=== PATIENT | female | born 1985 | race Caucasian/White ===

== ENCOUNTER 2024-06-16 12:03 | Emergency (ER) | payer MEDICAID, SELFPAY ==
[2024-06-16 12:04] VITALS: BMI 40.6
--- NOTE | 2024-06-16 12:29 | XR_ITS ---
Examination: CT brain head without contrast. 2-D sagittal coronal reconstructions Date and time of exam:June 16, 2024 1236 hrs. Indications: Dizziness, ataxia, headache beginning yesterday CTDI: vol (mGy):53.8 DLP: (mGycm):1053 Technique: Multiple CT axial sections of the brain have been obtained, 5 mm slice thickness. Contrast has not been administered. 2-D sagittal, coronal reconstructions have been obtained Low dose protocols were performed. One or more of the following dose reduction techniques were used; automated exposure control, adjustment of the mA and/or KV according to patient size, use of iterative reconstruction technique. Findings: No significant ventricular enlargement. Intra-axial or extra-axial hemorrhage density is not seen. No mass effect or midline shift Basal cisterns are not remarkable. Fourth ventricle is midline. Cranial vault intact. Acute maxillary sinusitis Impression: Negative for acute hemorrhage, mass effect or midline shift If symptoms persist, consider brain MRI follow-up, stroke protocol
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
--- NOTE | 2024-06-16 12:29 | XR_ITS ---
Examination: CT cervical spine without contrast 2-D sagittal reconstructions 2-D coronal reconstructions 3-D reconstructions. Exam date and time:June 16, 2024 1236 hrs. Indications: Onset neck soreness beginning yesterday CTDI:vol (mGy) 10.5 DLP: (mGycm) 211 Technique: Multiple 2 mm axial sections of the cervical spine have been obtained. The coronal and sagittal reconstructions have been obtained. 3-D reconstructions have been obtained. Low dose protocols were performed. One or more of the following dose reduction techniques were used; automated exposure control, adjustment of the mA and/or KV according to patient size, use of iterative reconstruction technique. Findings: Axial sections demonstrate intact base of the skull. C1 exhibit satisfactory relationship to the odontoid. No acute cervical vertebral body fracture seen. Alignment posterior spinous processes satisfactory. Impression: No acute cervical fracture. His symptoms persist, consider MRI cervical spine without contrast follow-up
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
[2024-06-16 12:30] VITALS: BP 136/83; PULSE 90; RESP 17; TEMP 37; O2SAT 96
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
== END 2024-06-16 14:39 | disposition home or self-care (01) ==
PROVIDERS: Emergency Provider Emergency Medicine; PCP Family Medicine
DX: S13.4XXA Sprain of ligaments of cervical spine, initial encounter (principal); S46.911A Strain of unspecified muscle, fascia and tendon at shoulder and upper arm level, right arm, initial encounter; S09.90XA Unspecified injury of head, initial encounter; S79.912A Unspecified injury of left hip, initial encounter; S29.9XXA Unspecified injury of thorax, initial encounter; V89.2XXA Person injured in unspecified motor-vehicle accident, traffic, initial encounter
CPT/HCPCS: 70450; 71046; 72125; 73030; 73502; 99284

== ENCOUNTER 2024-08-09 04:35 | Emergency (ER) | payer MEDICAID, SELFPAY ==
[2024-08-09 04:40] VITALS: BP 178/132; PULSE 87; RESP 19; TEMP 36.8; O2SAT 100; BMI 42.0
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
--- NOTE | 2024-08-09 05:19 | XR_ITS ---
Examination: CT abdomen and pelvis without contrast. Coronal 3-D reconstructions. Sagittal 2-D reconstructions. Date and time of exam:August 09, 2024 at 0732 hours Comparison January 04, 2022 INDICATION: Nausea vomiting beginning yesterday CTDI: vol (mGy): 16.5 DLP: (mGycm): 968 Technique: Axial images of the abdomen have been obtained, 3 mm slice thickness Intravenous contrast material has not been administered. Low dose protocols were performed. One or more of the following dose reduction techniques were used; automated exposure control, adjustment of the mA and/or KV according to patient size, use of iterative reconstruction technique. Findings: Hepatomegaly 20 cm fatty liver Splenomegaly AP dimension 14 cm No gallstones No pancreatic or adrenal mass Mild bilateral renal parenchymal scar formation No renal or ureteral calculi, no hydronephrosis Aorta normal size 4 mm fat-containing umbilical hernia Normal appendix No bowel obstruction No diverticulitis Anteverted uterus Intact urinary bladder Intact osseous structures IMPRESSION: Hepatosplenomegaly. Fatty liver. Mild bilateral renal parenchymal scar formation Normal appendix No bowel obstruction or diverticulitis
[2024-08-09] MEDS: SODIUM CHLORIDE 0.9% 1000 ML 1,000 ML 999 ML IV (05:28)
[2024-08-09] MEDS: ONDANSETRON INJ 2 MG/ML INJ 2 ML 4 MG IV (05:29)
[2024-08-09] MEDS: MORPHINE SULF INJ 10 MG/ML VIAL 4 MG IVP (05:29)
[2024-08-09] MEDS: KETOROLAC INJ 30 MG/ML VIAL IVP (05:35)
[2024-08-09 05:45] LABS: Basophils # (Auto) 0.1 Thou/mm3 (0.0-0.2); Basophils % (Auto) 0 % (0-2.5); Eosinophils # (Auto) 0.1 Thou/mm3 (0.0-0.5); Eosinophils % (Auto) 1 % (0-10); Hematocrit 40.1 % (36.0-46.0); Hemoglobin 13.5 g/dL (12.0-16.0); Immature Granulocytes % (Auto) 0 % (0-0); Immature Granulocytes Auto 0.04 Thou/mm3 (0.00-0.00); Lymphocytes # (Auto) 1.8 Thou/mm3 (1.0-4.8); Lymphocytes % (Auto) 16 % (10-50); Mean Corpuscular HGB Conc 33.7 g/dl (31.0-37.0); Mean Corpuscular Hemoglobin 25.6 pg (25.0-35.0); Mean Corpuscular Volume 76 fL (80-100); Monocytes # (Auto) 0.6 Thou/mm3 (0.0-0.8); Monocytes % (Auto) 5 % (0-12); Neutrophils # (Auto) 8.8 Thou/mm3 (1.8-7.7); Neutrophils % (Auto) 77 % (37-80); Nucleated Red Blood Cell % 0 /100 WBC (0); Platelet Count 336 Thou/mm3 (140-440); RDW Standard Deviation 37.7 fL (36.4-46.3); Red Blood Count 5.27 Miln/mm3 (4.00-5.20); White Blood Count 11.5 Thou/mm3 (3.6-11.0)
--- NOTE | 2024-08-09 05:58 | PD.EDADDENDU ---
Emergency Room Addendum Addendum Narrative: 0600: Care assumed from Dr. Moon, the previous shift emergency physician. Past medical, surgical, social and family history reviewed. Vitals and home medications reviewed. I will assume the care of the patient at this time. Please refer to the emergency department record for history and examination from initial visit.? Physical exam by me shows patient under no acute distress at this time. 0922: Patient remains clinically stable throughout the emergency department visit. Re-assessment at the time of disposition demonstrates that the patient is in no acute distress. We reviewed all the results, analysis, and treatment plans. Patient is amenable to discharge. Strict return precautions were outlined. Patient was discharged in stable condition. Diagnoses: Abdominal pain RADIOLOGY Procedure(s): CT abdomen pelvis wo [facility] Accession Number(s): [id number] cc: Erasto Moon MD; Boy Corbin MD; NO PRIMARY/FAMILY,PHYSICIAN~ Examination: CT abdomen and pelvis without contrast. Coronal 3-D reconstructions. Sagittal 2-D reconstructions. Date and time of exam:August 09, 2024 at 0732 hours Comparison January 04, 2022 INDICATION: Nausea vomiting beginning yesterday CTDI: vol (mGy): 16.5 DLP: (mGycm): 968 Technique: Axial images of the abdomen have been obtained, 3 mm slice thickness Intravenous contrast material has not been administered. Low dose protocols were performed. One or more of the following dose reduction techniques were used; automated exposure control, adjustment of the mA and/or KV according to patient size, use of iterative reconstruction technique. Findings: Hepatomegaly 20 cm fatty liver Splenomegaly AP dimension 14 cm No gallstones No pancreatic or adrenal mass Mild bilateral renal parenchymal scar formation No renal or ureteral calculi, no hydronephrosis Aorta normal size 4 mm fat-containing umbilical hernia Normal appendix No bowel obstruction No diverticulitis Anteverted uterus Intact urinary bladder Intact osseous structures IMPRESSION: Hepatosplenomegaly. Fatty liver. Mild bilateral renal parenchymal scar formation Normal appendix No bowel obstruction or diverticulitis Dictated By: Boy Corbin MD
[2024-08-09 06:07] VITALS: BP 163/102; PULSE 82; RESP 19; TEMP 36.8; O2SAT 100
[2024-08-09 06:11] LABS: HCG,Qualitative Serum Negative
[2024-08-09 06:22] LABS: Alanine Aminotransferase 31 U/L (10-49); Albumin, Serum 5.1 gm/dL (3.5-5.0); Albumin/Globulin Ratio 1.5 (1.2-2.2); Alkaline Phosphatase 69 U/L (46-116); Amylase 51 U/L (30-118); Anion Gap 15 (7-16); Aspartate Amino Transferase 28 U/L (0-34); BUN/Creatinine Ratio 10 Ratio (12-20); Bilirubin,Total 0.6 mg/dL (0.3-1.2); Blood Urea Nitrogen 9 mg/dL (9-23); Calcium 9.9 mg/dL (8.3-10.6); Calcium (Corrected) 9.9 mg/dL (8.5-10.1); Carbon Dioxide 20.5 mMol/L (20.0-31.0); Chloride 101 mMol/L (98-107); Creatinine (Component) 0.9 mg/dL (0.6-1.3); Globulin 3.3 gm/dL (2.3-3.5); Glucose 205 mg/dL (74-106); Lipase 43 U/L (12-53); Magnesium 2.1 mg/dL (1.6-2.6); Osmolality,Calculated 276 (275-295); Potassium 3.6 mMol/L (3.4-5.1); Sodium 136 mMol/L (136-145); Total Protein 8.4 gm/dL (5.7-8.2); eGFR > 60 See Note
[2024-08-09] MEDS: HALOPERIDOL LACT INJ 5 MG/ML VIAL 10 MG IM (07:00)
--- NOTE | 2024-08-09 07:00 | PC.NURSE ---
REPORT RECEIVED FROM JAEL NOVOA. PATIENT WITH COMPLAINT OF EPIGASTRIC PAIN. PATIENT OFFERED BLANKET AND PLAN OF CARE EXPLAINED. MOTHER AT BEDSIDE AND UNDERSTANDS NEED FOR CT. PATIENT NOT ABLE TO TOLERATE BP CUFF AT THIS TIME. CALL LIGHT WITHIN REACH. WILL CONTINUE TO MONITOR. DIE ASSEMBLER CONTACTED.
--- NOTE | 2024-08-09 07:30 | PC.NURSE ---
PATIENT TAKEN TO CT VIA GURNEY. PATIENT ABLE TO TOLERATE PAIN STATES IT IS A 3/10. GOWN AND BLANKET GIVEN.
[2024-08-09 07:59] VITALS: BP 178/128; PULSE 74; RESP 16; TEMP 36.4; O2SAT 98
[2024-08-09 09:32] VITALS: BP 160/92; PULSE 88; RESP 16; O2SAT 96
== END 2024-08-09 09:34 | disposition home or self-care (01) ==
PROVIDERS: Emergency Medicine; Emergency Provider Emergency Medicine
DX: K76.0 Fatty (change of) liver, not elsewhere classified (principal); R16.2 Hepatomegaly with splenomegaly, not elsewhere classified; N28.89 Other specified disorders of kidney and ureter
CPT/HCPCS: 36415; 74176; 80053; 82150; 83690; 83735; 84703; 85025; 96361; 96372; 96374; 96375; 99284; J1630; J1885; J2270; J2405; J7030

== ENCOUNTER 2024-08-12 22:01 | Emergency (ER) | payer MEDICAID, SELFPAY ==
[2024-08-12 22:09] VITALS: BP 167/93; PULSE 107; RESP 23; TEMP 36.9; O2SAT 98
[2024-08-12 22:10] VITALS: BMI 42.0
--- NOTE | 2024-08-12 22:23 | PD.EDRME ---
Rapid Medical Screening Exam RME Arrival date/time: 08/12/24 22:01 Chief Complaint: Abdominal Pain Time Seen by Provider: 08/12/24 22:08 Vital signs: Vital Signs Temperature 98.4 F 08/12/24 22:09 Pulse Rate 107 H 08/12/24 22:09 Respiratory Rate 23 H 08/12/24 22:09 Blood Pressure 167/93 H 08/12/24 22:09 Pulse Oximetry (%) 98 08/12/24 22:09 Oxygen Delivery Method Room Air 08/12/24 22:09 Vital signs reviewed by provider: Yes RME Narrative: 39-year-old female presents with abdominal pain x 3 days. She describes it as epigastric burning. She endorses nausea, vomiting, diarrhea. Patient was seen in the ED x 1 day ago.
--- NOTE | 2024-08-12 22:40 | EDNOTE_ITS ---
ED Abdominal Pain RME/HPI General Chief Complaint: Abdominal Pain Stated complaint: ABD PAIN Time seen by provider: 08/12/24 22:08 Arrival date/time: 08/12/24 22:01 RME / HPI RME / HPI narrative: 39-year-old female presents with abdominal pain x 3 days. She describes it as epigastric burning. She endorses nausea, vomiting, diarrhea. Patient was seen in the ED x 1 day ago. ------ This section includes all my notes and documentations, including HPI, PE, and ED course. Erasto Moon MD HPI: 39yo female with no significant past medical history presents to the ED for a chief complaint of burning epigastric pain x 3 days. Patient states she came in for the same complaint 3 days ago after taking a dose of Wegovy. It wasn't her medication, it belonged to another person. First time ever taken it. 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 She states my insides are burning . She never got completely better. She reports associated nausea and vomiting. She denies any fever, chills or any other associated symptoms. No hematemesis or coffee-ground emesis. No rectal bleeding or tarry stools. No other complaints reported. ROS: All negative except as documented in HPI. Physical Exam: General: Alert and oriented. In severe pain. Eyes: Conjunctivae and lids clear. ENT: No nasal congestion. Neck: Supple. Heart: RRR. Lungs: No respiratory distress. Good air movement. No rhonchi, wheezing, rales. Abdomen: Soft and upper abdominal tenderness. Normal BS. No distention. No rebound or guarding. Legs: No clubbing, cyanosis, edema. Skin: Warm and dry. Neuro: Alert and oriented X 3. Initially, patient was given Haldol 10 mg IM because this helped her the most when she was here a few days ago, on 08/09/2024. I reviewed all diagnostic test results. My review of the US report is gallbladder sludge. My review of the abdominal CT report on 08/09/2024 is no acute findings. Blood tests unremarkable. At this point, diagnoses include biliary colic. Treatment also included IV fluid, Zofran, famotidine, Protonix, and Ativan. Significant improvement noted. Recommended more outpatient workup. Based on my best medical judgment, made decision no further evaluation or treatment indicated at this time. Patient understands and agrees to the discharge instructions customized and printed, see below. Discharge Instructions from Dr. Moon: 1. After evaluation, your symptoms are due to gallbladder sludge. You need gallbladder to help digest fatty foods. 2. So to prevent future attacks, avoid all fatty and oily and greasy and buttery and dairy foods. This usually means take out and fast food restaurants. 3. Zofran for nausea/vomiting. Tylenol codeine for severe pain. And Augmentin for infection. 4. See a private doctor on 08/14/2024 for recheck and further care. Ask to review all test results and official radiology reports, to make sure you receive all necessary follow-ups and monitoring. Ask for help seeing a general surgeon to discuss elective surgery. 5. Seek immediate medical care with intolerable pain, fever, or with any concerns. Erasto Moon MD Related Data Home Medications ?Medication ?Instructions ?Recorded ?Confirmed ibuprofen 800 mg tablet 800 mg PO Q8H PRN Pain 01/0401/04/22 tizanidine 6 mg capsule (Zanaflex) 6 mg PO Q8H PRN Mus [place] Pain 01/04/22 01/04/22 Previous Rx's ?Medication ?Instructions ?Recorded diazepam 10 mg tablet (Valium) 10 mg PO BID PRN muscle spasm #20 01/04/22 tabs naproxen 500 mg tablet (Naprosyn) 500 mg PO BID PRN pa in #30 tabs 01/04/22 misoprostol 200 mcg tablet 800 mcg (4 x 200 mcg) PO QD AY #4 01/02/24 (Cytotec) tabs ibuprofen 800 mg tablet 800 mg PO TID PRN pain #30 t abs 06/16/24 ondansetron 4 mg disintegrating 4 mg PO Q8H PRN nausea and 08/09/24 tablet vomiting #15 tabs acetaminophen 300 mg-codeine 30 mg 2 tab PO Q8H PRN pa in #20 tabs 08/13/24 tablet amoxicillin 875 mg-potassium 1 tab PO BID #10 tabs clavulanate 125 mg tablet ondansetron 4 mg disintegrating 4 mg PO TID PRN nausea and 08/13/24 tablet vomiting 30 days #10 tabs Allergies Allergy/AdvReac Type Severity Reaction Status Date / Time No Known Allergies Allergy Verified 08/09/24 04:38 Review of Systems Review of Systems Systems Reviewed: All systems reviewed, normal except as documented Past Medical History Past Medical History NEUROLOGIC: Positive Migraine; Negative Neurological Disorders CARDIAC: Positive Hypertension; Negative Cardiac Disorders or Congestive Heart Failure RESPIRATORY: Negative Chronic Obstructive Pulmonary Disease (COPD) GASTROINTESTINAL: Negative Gastrointestinal Disorders GENITOURINARY: Negative Genitourinary Disorders or Renal Disease REPRODUCTIVE: Negative Endometriosis MUSCULOSKELETAL: Negative Musculoskeletal Disorders ENDOCRINE: Negative Diabetes Mellitus Type 1 or Diabetes Mellitus Type 2 HEMATOLOGIC: Negative Blood Disorders PSYCHO/SOCIAL: Positive Depression OTHER HISTORY: Positive Chicken Pox; Negative Autoimmune Disease or Blood Transfusions Family History FAMILY HISTORY: Positive Family Anesthesia Reaction; Negative Family Cardiac Disorders Social History SMOKING STATUS: Never smoker ED Exam Narrative Physical exam: As noted in HPI. Course Quality Measures none Orders Category Date Time Status Saline [Insert IV] NOW Care 08/13/24 01:30 Active EKG (ED Only) Stat Exams 08/12/24 22:30 Stop Req US gall bladder Stat Exams 08/12/24 22:44 Taken CBC Stat Lab 08/12/24 22:34 Completed CMP [Comprehensive Metabolic Panel] Stat Lab 08/12/24 22:34 Completed Drug Screen,Urine Stat Lab 08/12/24 22:21 Ordered HCG Qualitative,Urine Stat Lab 08/12/24 22:21 Ordered HCG,Qualitative Serum Stat Lab 08/12/24 22:34 Completed Lipase Stat Lab 08/12/24 22:34 Completed Troponin I Stat Lab 08/12/24 22:34 Completed UA [Urinalysis] Stat Lab 08/12/24 22:21 Ordered Acetaminophen Tab [Tylenol Tab] Med 08/12/24 22:20 Discontinued 650 mg PO X1 ONE Famotidine Inj [Pepcid Inj] Med 08/13/24 01:30 Discontinued 20 mg IVP X1 ONE Haloperidol Lactate [Haldol Inj] Med 08/12/24 22:44 Discontinued 10 mg IM X1 ONE LORazepam [Ativan Inj] Med 08/13/24 01:30 Discontinued 2 mg IVP X1 ONE Lidocaine 2% Viscous [Xylocaine 2% Viscous] Med 08/12/24 22:30 Discontinued 15 ml PO X1 ONE Ondansetron Inj [Zofran Inj] Med 08/12/24 22:20 Discontinued 4 mg IV X1 ONE Ondansetron Inj [Zofran Inj] Med 08/13/24 01:30 Discontinued 4 mg IV X1 ONE Pantoprazole Inj [Protonix Inj] Med 08/13/24 01:30 Discontinued 80 mg IVP X1 ONE Sodium Chloride 0.9% 1000 ml [Ns] 1,000 ml Med 08/12/24 22:21 Discontinued IV 999 mls/hr Sodium Chloride 0.9% 1000 ml [Ns] 1,000 ml Med 08/13/24 01:30 Discontinued IV 999 mls/hr mg Hyd/Al Hyd/Hayley Susp [Maalox Susp] Med 08/12/24 22:30 Discontinued 30 ml PO X1 ONE Vital Signs Vital signs: Vital Signs Temperature 98.4 F 08/12/24 22:09 Pulse Rate 107 H 08/12/24 22:09 Respiratory Rate 23 H 08/12/24 22:09 Blood Pressure 167/93 H 08/12/24 22:09 Pulse Oximetry (%) 98 08/12/24 22:09 Oxygen Delivery Method Room Air 08/12/24 22:09 Abdominal Pain MDM MDM Narrative MDM Narrative:: Scribe Attestation: 08/12/24 - Marcela Nava am scribing for and in the presence of Dr. Moon. Patient data External records reviewed:: [facility] previous records (Per chart review, patient was seen here on 08/09/24 for abdominal pain.) Clinical information provided by:: patient Social determinants that could affect healthcare access:: none Patient has the following chronic illnesses:: none How is presenting disease/condition affected by chronic disease/condition?: no chronic disease Evaluation data The following diagnostics were reviewed and interpreted by me:: lab results Lab and/or radiology exams considered but not ordered:: none Interpretation Summary: Gallbladder sludge Medications / Prescriptions Medications or Prescriptions considered but not ordered:: none Medication administrations:: Medication Administration History Discontinued Medications Acetaminophen (Acetaminophen 325 Mg Tablet) 650 mg PO X1 ONE Stop: 08/12/24 22:21 Last Admin: 08/12/24 22:56 Dose: Not Given Documented By: CVL Non-Admin Reason: Cancelled by Provider Al Hydrox/Mg Hydrox/Simethicone (Mg Hyd/Al Hyd/Hayley (Maalox Reg) Susp 30 Ml Udc) 30 ml PO X1 ONE Stop: 08/12/24 22:31 Last Admin: 08/12/24 22:57 Dose: Not Given Documented By: CVL Non-Admin Reason: Cancelled by Provider Famotidine (Famotidine Inj 10 Mg/Ml Vial 2 Ml) 20 mg IVP X1 ONE Stop: 08/13/24 01:31 Last Admin: 08/13/24 01:48 Dose: 20 mg Documented By: PINOR Haloperidol Lactate (Haloperidol Lact Inj 5 Mg/Ml Vial) 10 mg IM X1 ONE Stop: 08/12/24 22:45 Last Admin: 08/12/24 22:51 Dose: 10 mg Documented By: CVL Sodium Chloride (Ns) 1,000 mls @ 999 mls/hr IV .Q1H1M ONE Stop: 08/12/24 23:21 Last Admin: 08/12/24 22:56 Dose: Not Given Documented By: CVL Non-Admin Reason: Cancelled by Provider Sodium Chloride (Ns) 1,000 mls @ 999 mls/hr IV .Q1H1M ONE Stop: 08/13/24 02:30 Last Infusion: 08/13/24 02:59 Dose: Infused Documented By: Admin: 08/13/24 01:47 Dose: 999 mls/hr Documented By: PINOR Lidocaine HCl (Lidocaine Viscous 2% 15 Ml Udc) 15 ml PO X1 ONE Stop: 08/12/24 22:31 Last Admin: 08/12/24 22:57 Dose: Not Given Documented By: CVL Non-Admin Reason: Cancelled by Provider Lorazepam (Lorazepam 2 Mg/Ml Vial) 2 mg IVP X1 ONE Stop: 08/13/24 01:31 Last Admin: 08/13/24 02:39 Dose: 2 mg Documented By: CVL Ondansetron HCl (Ondansetron Inj 2 Mg/Ml Inj 2 Ml) 4 mg IV X1 ONE; Protocol Stop: 08/12/24 22:21 Last Admin: 08/12/24 22:56 Dose: Not Given Documented By: CVL Non-Admin Reason: Cancelled by Provider Ondansetron HCl (Ondansetron Inj 2 Mg/Ml Inj 2 Ml) 4 mg IV X1 ONE; Protocol Stop: 08/13/24 01:31 Last Admin: 08/13/24 01:47 Dose: 4 mg Documented By: PINOR Pantoprazole Sodium (Pantoprazole Inj 40 Mg Vial) 80 mg IVP X1 ONE Stop: 08/13/24 01:31 Last Admin: 08/13/24 01:47 Dose: 80 mg Documented By: Noah Sarmiento, Protoncole, Pepcimario, LISA, Matt from nm. Consultations Consultation(s) initiated? (list below): No Diagnosis Differential diagnosis abdominal pain: acute appendicitis, calculus of kidney, constipation, diverticulitis, endometriosis, gastroenteritis, pancreatitis, small bowel obstruction and other (Biliary colic) Most likely diagnosis given after review of the tests above:: Gallbladder sludge Admission Indicated Admission indicated?: not indicated Explain why admission is indicated or not indicated:: With significant improvement, there was no indication for admission. Admission Request Was there a request for admission?: No Disposition Plan Disposition Plan: Discharge Discharge Attestation Discharge Attestation: The patient and all family members were given an opportunity to ask questions and understood the discharge instructions. Discharge instructions specifically effects, indications for sooner follow up or return to the emergency department, and the expected course of current diagnosis. Patient condition: Stable Discharge Plan Plan Patient Disposition: HOME (Self Care) Prescriptions/Referrals Prescriptions/Med Rec: New acetaminophen-codeine 300-30 mg tablet 2 tab PO Q8H MDD 6 PRN (Reason: pain) Qty: 20 0RF ondansetron 4 mg tablet,disintegrating 4 mg PO TID PRN (Reason: nausea and vomiting) 30 Days Qty: 10 0RF amoxicillin-pot clavulanate 875-125 mg tablet 1 tab PO BID Qty: 10 0RF No Action ibuprofen 800 mg Tablet 800 mg PO Q8H PRN (Reason: Pain) tizanidine [Zanaflex] 6 mg Capsule 6 mg PO Q8H PRN (Reason: Muscle Pain) diazepam [Valium] 10 mg tablet 10 mg PO BID PRN (Reason: muscle spasm) Qty: 20 0RF naproxen [Naprosyn] 500 mg tablet 500 mg PO BID PRN (Reason: pain) Qty: 30 0RF misoprostol [Cytotec] 200 mcg tablet 800 mcg PO QDAY Qty: 4 0RF Rx Instructions: Please take today at 3 or 4 PM. ibuprofen 800 mg tablet 800 mg PO TID PRN (Reason: pain) Qty: 30 0RF ondansetron 4 mg tablet,disintegrating 4 mg PO Q8H PRN (Reason: nausea and vomiting) Qty: 15 0RF Referrals: Den Martinez MD [Primary Care Provider] - In 1 week Problem List Clinical Impression: Gallbladder sludge Patient/Caregiver Discharge Instructions Education Materials: ED Gallstones with Biliary Colic Additional Instructions: Discharge Instructions from Dr. Moon: 1. After evaluation, your symptoms are due to gallbladder sludge.? You need gallbladder to help digest fatty foods. 2. So to prevent future attacks, avoid all fatty and oily and greasy and buttery and dairy foods.? This usually means take out and fast food restaurants. 3. Zofran for nausea/vomiting.? Tylenol codeine for severe pain.??And Augmentin for infection. 4. See a private doctor on 08/14/2024 for recheck and further care. Ask to review all test results and official radiology reports, to make sure you receive all necessary follow-ups and monitoring. Ask for help seeing a general surgeon to discuss elective surgery. 5. Seek immediate medical care with intolerable pain, fever, or with any concerns. Print Language: Lithuanian Stand Alone Forms: [employer] Award Info., Patient Portal Info Letter
[2024-08-12 22:43] LABS: Basophils # (Auto) 0.1 Thou/mm3 (0.0-0.2); Basophils % (Auto) 1 % (0-2.5); Eosinophils # (Auto) 0.1 Thou/mm3 (0.0-0.5); Eosinophils % (Auto) 1 % (0-10); Hematocrit 41.5 % (36.0-46.0); Immature Granulocytes % (Auto) 1 % (0-0); Immature Granulocytes Auto 0.06 Thou/mm3 (0.00-0.00); Lymphocytes # (Auto) 1.5 Thou/mm3 (1.0-4.8); Lymphocytes % (Auto) 11 % (10-50); Mean Corpuscular HGB Conc 33.7 g/dl (31.0-37.0); Mean Corpuscular Hemoglobin 25.6 pg (25.0-35.0); Mean Corpuscular Volume 76 fL (80-100); Monocytes # (Auto) 0.8 Thou/mm3 (0.0-0.8); Monocytes % (Auto) 6 % (0-12); Neutrophils # (Auto) 10.9 Thou/mm3 (1.8-7.7); Neutrophils % (Auto) 82 % (37-80); Nucleated Red Blood Cell % 0 /100 WBC (0); Platelet Count 324 Thou/mm3 (140-440); RDW Standard Deviation 37.5 fL (36.4-46.3); Red Blood Count 5.46 Miln/mm3 (4.00-5.20); White Blood Count 13.3 Thou/mm3 (3.6-11.0)
--- NOTE | 2024-08-12 22:44 | XR_ITS ---
Examination: Abdomen sonogram, Limited Date and time of exam: August 13, 2024 1243 hours INDICATIONS: Epigastric pain and burning vomiting beginning today Technique: Real-time bergeron scale transabdominal sonographic images of the upper abdomen obtained. Findings: Gallbladder sludge Negative for cholelithiasis, negative for cholecystitis Normal common bile duct 0.2 cm Pancreatic head 2.3 cm Liver 15.6 cm fatty infiltration smooth contour Normal hepatopedal portal venous flow Patent IVC IMPRESSION: Negative for cholelithiasis, negative for cholecystitis
[2024-08-12] MEDS: HALOPERIDOL LACT INJ 5 MG/ML VIAL 10 MG IM (22:51)
[2024-08-12 23:01] LABS: Alanine Aminotransferase 64 U/L (10-49); Albumin, Serum 5.1 gm/dL (3.5-5.0); Albumin/Globulin Ratio 1.5 (1.2-2.2); Alkaline Phosphatase 72 U/L (46-116); Anion Gap 13 (7-16); Aspartate Amino Transferase 49 U/L (0-34); BUN/Creatinine Ratio 20 Ratio (12-20); Bilirubin,Total 0.7 mg/dL (0.3-1.2); Blood Urea Nitrogen 18 mg/dL (9-23); Calcium 10.7 mg/dL (8.3-10.6); Calcium (Corrected) 10.7 mg/dL (8.5-10.1); Carbon Dioxide 22.7 mMol/L (20.0-31.0); Chloride 99 mMol/L (98-107); Creatinine (Component) 0.9 mg/dL (0.6-1.3); Globulin 3.4 gm/dL (2.3-3.5); Glucose 177 mg/dL (74-106); Lipase 39 U/L (12-53); Osmolality,Calculated 276 (275-295); Potassium 3.6 mMol/L (3.4-5.1); Sodium 135 mMol/L (136-145); Total Protein 8.5 gm/dL (5.7-8.2); Troponin I < 0.020 ng/mL (0.0-0.045); eGFR > 60 See Note
[2024-08-12 23:10] LABS: HCG,Qualitative Serum Negative
[2024-08-13 01:12] VITALS: BP 170/124; BP 172/131; PULSE 104; RESP 22; TEMP 36.6; O2SAT 98
--- NOTE | 2024-08-13 01:30 | PC.NURSE ---
Pt in conference room stating she was starting to have nausea again, administrative court justice had been administered prior for symptom relief. Pt was put in conference room due to agitation in lobby while being triage. Pt's mother stated i think we were put here to be forgotten Pt reassured that they were not forgotten and that ED MD would be notified of symptoms. MD Moon notified and he stated we should put her in a room to give her IV meds. MURPHY RN notified. Orders executed.
[2024-08-13] MEDS: PANTOPRAZOLE INJ 40 MG VIAL 80 MG IVP (01:47)
[2024-08-13] MEDS: SODIUM CHLORIDE 0.9% 1000 ML 1,000 ML 999 ML IV (01:47)
[2024-08-13] MEDS: ONDANSETRON INJ 2 MG/ML INJ 2 ML 4 MG IV (01:47)
[2024-08-13] MEDS: FAMOTIDINE INJ 10 MG/ML VIAL 2 ML 20 MG IVP (01:48)
--- NOTE | 2024-08-13 02:14 | PC.NURSE ---
JAEL Telles stated Pt's mther was requesting to speak to Charge Nurse, this magazine writer attempted to speak to pt and pt's mother stated I would like to speak to the Machinery Mechanic Pt's mother reassured Machinery Mechanic would be made aware.
--- NOTE | 2024-08-13 02:15 | PC.NURSE ---
pt moved to R4 for agitation for feeling secluded in the conference room. IV was placed and documenting nurse informed pt and family that meds will take awhile to be reviewed by pharmacy. appox 20 min later meds were approved and documenting nurse took all meds into pt room. pt was sleeping on bed. mother woke up the pt and documenting nurse informed pt and family what meds were ordered. documenting nurse was going to give anxiety med but decided not to with pt at rest and sleeping. pt mother and pt started to get very agitated with documenting nurse that pt was not going to receive the anxiety med. mother being very agitated starts yelling at the documenting nurse. well what did you give her! she needs all the medication! documenting nurse called out family member telling her she was being pushy, and that the meds given where already explained. pt mother interrupts documenting nurse and demanding to speak to warehouse hand and that there has not been one single person here that has been nice to them. electrical prospecting supervisor and charge nurse notified. pt mother also refused to close the door stating she wants everyone to here that her daughter is still sick if she starts to vomit again.
[2024-08-13] MEDS: LORazepam 2 MG/ML VIAL IVP (02:39)
--- NOTE | 2024-08-13 02:54 | PRELIM_ITS ---
Right upper quadrant abdominal ultrasound. August 13, 2024 at 0043 hours Clinical history: Right upper quadrant tenderness. Technique: Grayscale and color flow images of the right upper quadrant are provided. Hepatic and portal veins were also imaged with color flow images. Comparison: No prior study is available for comparison. Findings: The liver is heterogeneous in echogenicity with smooth contour. Hepatopetal flow in main portal vein. No intrahepatic biliary ductal dilatation. No gallbladder calculus, wall thickening or pericholecystic fluid is demonstrated. Low level echoes are seen within the gallbladder. Sonographic Rivers sign is negative as per the technologist's note. The common bile duct is normal in caliber at 0.2 cm. The pancreas appears hyperechoic. The inferior vena cava is unremarkable to the extent visualized. Impression: Gallbladder sludge. No evidence of acute cholecystitis. Fat infiltration into pancreas. Recommend clinical correlation and follow-up. Report Electronically Signed By: Brooks aBtes 08/13/2024 2:52:59 AM [EST]
== END 2024-08-13 03:31 | disposition home or self-care (01) ==
PROVIDERS: Physician Assistant; Emergency Provider Emergency Medicine; PCP Family Medicine
DX: K82.8 Other specified diseases of gallbladder (principal)
CPT/HCPCS: 36415; 76705; 80053; 80307; 81001; 81025; 83690; 84484; 84703; 85025; 96361; 96374; 96375; 99284; J1630; J2060; J2405; J2470; J3490; J7030

== ENCOUNTER 2025-01-14 15:38 | Emergency (ER) | payer MEDICAID, SELFPAY ==
--- NOTE | 2025-01-14 16:45 | PC.NURSE ---
CALLED IN LOBBY AND OUTSIDE; NO ANSWER X 1.
--- NOTE | 2025-01-14 17:00 | PC.NURSE ---
CALLED IN LOBBY AND OUTSIDE; NO ANSWER X 2.
--- NOTE | 2025-01-14 17:15 | PC.NURSE ---
CALLED IN LOBBY AND OUTSIDE; NO ANSWER X 3.
== END 2025-01-14 17:16 | disposition left against medical advice (07) ==
LOC: SERX 16:57
PROVIDERS: Emergency Provider Emergency Medicine
DX: Z53.21 Procedure and treatment not carried out due to patient leaving prior to being seen by health care provider (principal)
CPT/HCPCS: 99281

== ENCOUNTER 2025-03-14 13:56 | Outpatient (AMB) | payer MEDICAID, SELFPAY ==
[2025-03-14 13:59] VITALS: BP 124/82; PULSE 93; RESP 18; TEMP 36.2; O2SAT 97; BMI 40.4
--- NOTE | 2025-03-14 13:59 | AMB.OBINITIA ---
Vital Signs 03/14/25 13:59 Height 1.57 m Height Method Stated Weight 99.507 kg Weight Measurement Method Standing Scale BMI 40.4 BP 124/82 Blood Pressure Source Automatic Cuff Blood Pressure Location Left Upper Arm Position Sitting Respiration 18 Pulse 93 Pulse Source Monitor Temp 97.1 F Temp Source Oral Pulse Oximetry (%) 97 Oxygen Delivery Method Room Air Allergies/Home Meds Allergies & Medications Allergies No Known Allergies Allergy (Verified 03/14/25 14:15) Medication Reconciliation ondansetron 4 mg disintegrating tablet 4 mg PO Q8H PRN nausea and vomiting #15 tabs 08/09/24 [Rx Confirmed 03/14/25] Intake Visit Data Collection New Patient or Established: Established Patient (seen at [facility] within 3 years) Reason for Visit:: INITIAL CARE Seen by Clinical Staff ONLY (RN/MA): No Electrical Calibrator Required: No Do You Feel Safe at Home: Yes Authorities Contacted: N/A PCP or OBGYN visit in last 3 months: Yes Hx Now: Yes Are you currently on any form of Control: No Last menstrual period: 12/15/24 Pain Present Currently: No Pain Scale Used: Robles-Rothman/Numerical Pain scale:: 0 Smoking Status Smoking Status: Former smoker Immunizations Flu Vaccine in the Last 12 Months: No Flu Vaccine Exclusion Criteria: No Exclusion Criteria Questionnaires Covid-19 Vaccine Questionnaire Has patient been vacinated for Covid-19 Have you been vacinated for Covid-19: Yes PHQ-9 PHQ-2 Over the last 2 weeks, how often have you been bothered by any of the following problems? 1. Little interest or pleasure in doing things: not at all 2. Feeling down, depressed, or hopeless: not at all Total score: 0 PHQ-9 3. Trouble falling or staying asleep, or sleeping too much: Not at all 4. Feeling tired or having little energy: Not at all 5. Poor appetite or overeating: Not at all 6. Feeling bad about yourself - or that you are a failure or have let yourself or your family down: Not at all 7. Trouble concentrating on things, such as reading the newspaper or watching television: Not at all 8. Moving or speaking so slowly that other people could have noticed? - Or the opposite - being so fidgety or restless that you have been moving around a lot more than usual: not at all 9. Thoughts that you would be better off or of hurting yourself in some way: Not at all Total score: 0 Source: Developed by Drs. Krunal Correia, Irlanda Vicente, Ras Cabrera and colleagues, with an educational iris from [employer]. Depression screen completed yes Social History Living Situation History Lives With: Family Housing: House Tobacco History Smoking Status: Former smoker Second Hand Smoke Exposure: No Alcohol History Alcohol Intake: Never Substance Use History Substance Use: Marijuana, last used in august of 2023 Domestic Abuse History Do You Feel Safe at Home: Yes History of Present Illness HPI Narrative 39-year-old 7 para 3 for OBI. Patient has not last. December 12, 2024. This gives an EDC by LMP September 18, 2025. Patient had a sono at [facility] by CN on February 19, 2025. The baby was 9 weeks 1 and this gave EDC September 24, 2025. Patient has sure dates. She has a history of vaping which she stopped when she found out she was . And also THC use she has a previous history of drinking beer and mixed drinks about 3-4 times a week but she has not had any alcohol since she was . Previous history of anxiety and depression. She is not taking any medication for that. Had a history STDs 5 years. Denies leaking, bleeding, cramps. Denies movement. Patient has no OB discomforts at this time. She is happy about the but worried. 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 Her last. December 12, 2024. Patient went to [facility] for verification. This CNM did a ultrasound on February 19, 2025. The baby was measuring 9 weeks 1 and this corrected the EDC to September 24, 2025. Denies any signs symptoms miscarriage Schedule an urgent appointment with MFM at [facility] because of AMA and loss. Discussed SAB precautions and loss. Continue prenatals. Continue to not use marijuana or smoke cigarettes. Increase fluids. Continue prenatals. Return in 4 weeks OB check Schedule an urgent appointment with MFM at [facility] because of AMA and loss. Discussed SAB precautions and loss. Continue prenatals. Continue to not use marijuana or smoke cigarettes. Increase fluids. Continue prenatals. Return in 4 weeks OB check. Menstrual History Menstrual reliability: definite Flow: normal Menstrual regularity: regular Monthly: Yes Age at menarche: 14 On control pills at conception: No Associated symptoms (LMP): Reports nausea, vomiting, fatigue and breast tenderness OB History : 7 Para: 3 Hx Total # of Abortions (Spontaneous & Elective): 3 # of Living Children: 3 Delivery History 1st : Child's name: PILAR date: 12/06/06 sex: female Gestational age at delivery (weeks): 41 Delivery type: vaginal Delivery complications: NONE History of depression before or after : No 2nd : Child's name: LASHA date: 11/09/07 sex: female Gestational age at delivery (weeks): 41 Delivery type: vaginal Delivery complications: NONE History of depression before or after : No 3rd : Child's name: FLIP date: 10/12/21 sex: female Gestational age at delivery (weeks): 40 Delivery type: vaginal Delivery complications: NONE History of depression before or after : No Infection History & Risk Evaluation History of STDs: chlamydia (5 YEARS AGO) Genetic Screening & History Genetic Screening/Teratology Counseling - Includes patient, baby's father, or anyone in either family with: 1. Patient's age 35 years or older as of estimated date of delivery: Yes 2. Thalassemia (Khmer, Tamazight, Mediterranean, or Background); MCV less than 80: No 3. Neural Tube Defect (Meningomyelocele, Spina Bifida, or Anencephaly): No 4. Congenital Heart Defect: No 5. Down Syndrome: No 6. Desmond-Sachs (Ashkenazi Anabaptism, Cajun, Faroese Earth): No 7. Ramiro Disease (Ashkenazi Anabaptism): No 8. Familial Dysautonomia (Ashkenazi Anabaptism): No 9. Sickle Cell Disease or Trait (): No 10. Hemophilia or other blood disorders: No 11. Muscular Dystrophy: No 12. Cystic Fibrosis: No 13. [place]'s Chorea: No 14. Mental Retardation/Autism: No 15. Other inherited genetic or chromosomal disorder: No 16. Maternal Metabolic Disorder (EG,TYPE 1 Diabetes, PKU): No 17. Patient or baby's father had a child with defects not listed above: No 18. Recurrent loss or a stillbirth: No 19. Medications (including supplements, vitamins, herbs or otc drugs)/illicit/recreational drugs/alcohol since last menstrual period: No 20. Any other: No Infection History 1. Live with someone with TB or exposed to TB: No 2. Rash or viral illness since last menstrual period: No 3. Hepatitis B,C: No 4. History of STD: gonorrhea (5 YEARS AGO) and chlamydia (5 YEARS AGO) Other (see comments) Source: [employer] Review of Systems Review of Systems Systems Reviewed: All systems reviewed, normal except as documented Constitutional Constitutional: Reports fatigue Gastrointestinal Gastrointestinal: Reports nausea and Reports vomiting Endocrine Endocrine: Reports fatigue Exam General Limitations: no limitations General Appearance: alert, in no apparent distress, comfortable, cooperative, healthy appearing, well developed and well groomed Head Head exam: atraumatic, normocephalic and normal inspection ENT ENT exam: Present normal exam, normal oropharynx and mucous membranes moist Neck Neck exam: Present normal inspection, full ROM and trachea midline Chest Chest inspection: Present normal inspection and symmetric chest wall rise Resp Respiratory exam: Present normal lung sounds bilaterally Card Cardiovascular exam: Present regular rate, normal rhythm and normal heart sounds Abdominal Abdominal exam: Present soft and normal bowel sounds Psych Psychiatric exam: Present normal affect and normal mood Office Procedures OBC Clinic LOC & Office Proc's Nursing/Assessment Patient Status: Established Patient OB Clinic Nursing Assessment: Medication Reconciliation, Update PMH in EMR and Vital Signs OB Clinic Coordination of Care: AMA, Complex Care and Chronic Disease 1-5, Consent,records obtained, informed consent, Education Simp Pt/Fam, 1 Ins Authorization, Lab and Imaging orders, Results/Orders obtained and Staff clarify orders Special Needs: Heart tones Established Patient Charge Established Patient Point Assignment: 170 Established Patient Point Charge: EP Level 5 (160-above) Assessment & Plan Diagnosis / Problem List (1) Encounter for supervision of high risk in first trimester, antepartum: Status: Acute Plan Schedule with maternal- medicine at [facility] because of previous loss and AMA. OB panel today with NIPT and carrier screen. Discussed SAB precautions. Continue prenatals. Return in 4 weeks OB check Additional Plan Follow Up: 4 Weeks (obc)
== END 2025-03-14 14:43 | disposition home or self-care (01) ==
LOC: HODSOBC 13:56
PROVIDERS: Supervising Provider Advanced Practice Midwife; Visit Provider Advanced Practice Midwife
DX: O09.521 Supervision of elderly multigravida, first trimester (principal); Z3A.12 12 weeks gestation of pregnancy
CPT/HCPCS: 99215; G0463

== ENCOUNTER 2025-04-14 13:03 | Outpatient (AMB) | payer MEDICAID, SELFPAY ==
[2025-04-14 13:11] VITALS: BP 118/85; PULSE 98; RESP 18; TEMP 36.2; O2SAT 98; BMI 41.3
--- NOTE | 2025-04-14 13:11 | OBCLNT_ITS ---
Vital Signs 04/14/25 13:11 Height 1.57 m Height Method Stated Weight 101.831 kg Weight Measurement Method Standing Scale BMI 41.3 BP 118/85 H Blood Pressure Source Automatic Cuff Blood Pressure Location Left Upper Arm Position Sitting Respiration 18 Pulse 98 Pulse Source Monitor Temp 97.2 F Temp Source Oral Pulse Oximetry (%) 98 Oxygen Delivery Method Room Air Allergies/Home Meds Allergies & Medications Allergies No Known Allergies Allergy (Verified 04/14/25 13:12) Medication Reconciliation ondansetron 4 mg disintegrating tablet 4 mg PO Q8H PRN nausea and vomiting #15 tabs 08/09/24 [Rx Confirmed 04/14/25] bupropion HCl 75 mg tablet 75 mg PO QDAY depression #60 tabs 04/14/25 [Rx] Immunizations Immunizations Flu Vaccine in the Last 12 Months: No Flu Vaccine Exclusion Criteria: No Exclusion Criteria Care OB Visit Log OB Flowsheet Initial Weight: Not Recorded Date -?-?-?-?-?-?-?-?-?-?-?-?- EGA Weight BP Alb Glu CTX Pres Fundal ht FHR Mov Dilation Station Effacement Hx Notes Visit Note 03/14/25 -?-?-?-?-?-?-?-?-?-?-?-?- 12w 3d 99.507 kg 124/82 absent unknown 12 145 absent 39-year-old 7 para 3 for OBI. Her last. December 12, 2024. Patient went to [facility] for verification. This CNM did a ultrasound on February 19, 2025. The baby was measuring 9 weeks 1 and this corrected the EDC to September 24, 2025. Denies any signs symptoms miscarriage Schedule an urgent appointment with MFM at [facility] because of AMA and loss. Discussed SAB precautions and loss. Continue prenatals. Continue to not use marijuana or smoke cigarettes. Increase fluids. Continue prenatals. Return in 4 weeks OB check Schedule an urgent appointme nt with MFM at [facility] because of AMA and loss. Discussed SAB precautions and loss. Continue prenatals. Continue to not use marijuana or smoke cigarettes. Increase fluids. Continue prenatals. Return in 4 weeks OB check. 04/14/25 -?-?-?-?-?-?-?-?-?-?-?-?- 16w 6d 101.831 kg 118/85 absent unknown 16 145 active Reports movement. Denies leaking, bleeding, contractions. No bleeding or complaints of miscarriage. Patient started crying during the visit today. She states that she has a previous history of depression and anxiety and used to take Lexapro. She sees a family practice doctor at the [facility]. That provider a year ago referred patient to [facility]. The patient said she did not intake over the phone and then was lost to care. So she has not been seeing a counselor or therapist anymore. 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 She is tired all the time. Reports feeling very emotional. She was not sad if she was anxious or depressed but she is very worried of another miscarriage. Patient had come in for normal OB appointment with the last and had a demise and then needed to be delivered. That was prior to 20 weeks. So patient would like some help. Consult with OB on-call. I started patient on Wellbutrin 75 mg daily. I advised patient to make an appointment at [facility] to see when the family practice there and then also therapist there are behavioral health. I also gave patient a note to ask if she could be placed back on p.m. shift. And also I put patient off for 4 weeks and then I will reevaluate her and see was going on. Her next OB appointment will be in 2 weeks. We did AFP today. Labs were discussed as well ABDIEL Calculator Estimated Delivery Date Method Current WG Current Estimate 09/23/25 Ultrasound #1 16w 6d Other Estimates 09/18/25 LMP (Certain) 17w 4d 09/18/25 Manual 17w 4d final abdiel: 09/18 Notes Visit Date: 04/14/25 Last Updated by: Makayla Forrest CNM OB panel. NIPT/carrier screen-, B-/ABS-, rub ni, hbsag-,hiv-,HC-, GC/CT-, UA-, rpr;;nr. RHOGAM AT 28 week Visit Date: 03/14/25 Last Updated by: Makayla Forrest CNM 39 yo . LMP 12/12/24:: EDC: 09/18/25. office sono: 02/19: 9w1. EDC: 09/24/25 Office Procedures OBC Clinic LOC & Office Proc's Nursing/Assessment Patient Status: Established Patient OB Clinic Nursing Assessment: Medication Reconciliation, Update PMH in EMR and Vital Signs OB Clinic Coordination of Care: Consent,records obtained, informed consent, Education Simp Pt/Fam, Lab and Imaging orders and Staff clarify orders Special Needs: Heart tones Established Patient Charge Established Patient Point Assignment: 105 Established Patient Point Charge: EP Level 3 (80-115) Assessment & Plan Diagnosis / Problem List (1) Advanced maternal age (AMA) in : Status: Acute (2) Encounter for supervision of high risk in second trimester, antepartum: Status: Acute (3) Anxiety disorder affecting , antepartum: Status: Acute Plan Note placed patient off work on disability for 4 weeks. Reevaluate in 4 weeks. I also gave patient a note to ask patient to be placed on p.m. shift. Consult with OB on-call regarding anxiety. Patient started on Wellbutrin 75 p.o. daily. I advised patient to get an appointment at [facility] with family practice and also behavioral health. aFP today. Discussed labs. RhoGAM at 28 weeks. Return in 2 weeks OB check Additional Plan Follow Up: 2 Weeks (obc)
== END 2025-04-14 13:44 | disposition home or self-care (01) ==
LOC: HODSOBC 13:03
PROVIDERS: Supervising Provider Advanced Practice Midwife; Visit Provider Advanced Practice Midwife
DX: O09.522 Supervision of elderly multigravida, second trimester (principal); O09.892 Supervision of other high risk pregnancies, second trimester; O99.342 Other mental disorders complicating pregnancy, second trimester; F41.9 Anxiety disorder, unspecified; F32.A Depression, unspecified; O09.292 Supervision of pregnancy with other poor reproductive or obstetric history, second trimester; Z3A.16 16 weeks gestation of pregnancy; Z79.899 Other long term (current) drug therapy
CPT/HCPCS: 99213; G0463

== ENCOUNTER 2025-05-16 09:44 | Outpatient (AMB) | payer MEDICAID, SELFPAY ==
[2025-05-16 11:26] VITALS: BP 119/80; PULSE 100; RESP 18; TEMP 36.2; O2SAT 97; BMI 42.1
--- NOTE | 2025-05-16 11:26 | OBCLNT_ITS ---
Vital Signs 05/16/25 11:26 Height 1.57 m Height Method Stated Weight 103.929 kg Weight Measurement Method Standing Scale BMI 42.1 BP 119/80 Blood Pressure Source Automatic Cuff Blood Pressure Location Right Upper Arm Position Sitting Respiration 18 Pulse 100 Pulse Source Monitor Temp 97.2 F Temp Source Temporal Artery Scan Pulse Oximetry (%) 97 Oxygen Delivery Method Room Air Allergies/Home Meds Allergies & Medications Allergies No Known Allergies Allergy (Verified 05/16/25 11:27) Medication Reconciliation ondansetron 4 mg disintegrating tablet 4 mg PO Q8H PRN nausea and vomiting #15 tabs 08/09/24 [Rx Confirmed 05/16/25] bupropion HCl 75 mg tablet 75 mg PO QDAY depression #60 tabs 04/14/25 [Rx Confirmed 05/16/25] Immunizations Immunizations Flu Vaccine in the Last 12 Months: No Flu Vaccine Exclusion Criteria: No Exclusion Criteria Care OB Visit Log OB Flowsheet Initial Weight: Not Recorded Date -?-?--?-?-?-?-?-?-?-?-?-?- EGA Weight BP Alb Glu CTX Pres Fundal ht FHR Mov Dilation Station Effacement Hx Notes Visit Note 03/14/25 -?-?-?-?-?-?-?-?-?-?-?-?- 12w 3d 99.507 kg 124/82 absent unknown 12 145 absent 39-year-old 7 para 3 for OBI. Her last. December 12, 2024. Patient went to [facility] for verification. This CNM did a ultrasound on February 19, 2025. The baby was measuring 9 weeks 1 and this corrected the EDC to September 24, 2025. Denies any signs symptoms miscarriage Schedule an urgent appointment with MFM at [facility] because of AMA and loss. Discussed SAB precautions and loss. Continue prenatals. Continue to not use marijuana or smoke cigarettes. Increase fluids. Continue prenatals. Return in 4 weeks OB check Schedule an urgent appointme nt with MFM at [facility] because of AMA and loss. Discussed SAB precautions and loss. Continue prenatals. Continue to not use marijuana or smoke cigarettes. Increase fluids. Continue prenatals. Return in 4 weeks OB check. 04/14/25 -?-?-?-?-?-?-?-?-?-?-?-?- 16w 6d 101.831 kg 118/85 absent unknown 16 145 active Reports movement. Denies leaking, bleeding, contractions. No bleeding or complaints of miscarriage. Patient started crying during the visit today. She states that she has a previous history of depression and anxiety and used to take Lexapro. She sees a family practice doctor at the [facility]. That provider a year ago referred patient to [facility]. The patient said she did not intake over the phone and then was lost to care. So she has not been seeing a counselor or therapist anymore. 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 She is tired all the time. Reports f eeling very emotional. She was not sad if she was anxious or depressed but she is very worried of another miscarriage. Patient had come in for normal OB appointment with the last and had a demise and then needed to be delivered. That was prior to 20 weeks. So patient would like some help. Consult with OB on-call. I started patient on Wellbutrin 75 mg daily. I advised patient to make an appointment at [facility] to see when the family practice there and then also therapist there are behavioral health. I also gave patient a note to ask if she could be placed back on p.m. shift. And also I put patient off for 4 weeks and then I will reevaluate her and see was going on. Her next OB appointment will be in 2 weeks. We did AFP today. Labs were discussed as well 05/16/25 -?-?-?-?-?-?-?-?-?-?-?-?- 21w 3d 103.929 kg 119/80 absent unknown 21 145 active Reports good movement. Denies leaking, bleeding. Increased cramps. 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 She is unable to sleep and she is worried that the lack of sleep will cause her to have an early loss. She is sleeping about 2 to 3 hours/day working on nights. She reports that being off for 4 weeks has helped but she is very concerned. She states she prior to this she was falling asleep at the nurses station. Patient states that she will go a nd bring her concerns to HR to see what they have to say. Continue Wellbutrin 75 mg daily. APS labs today. Discussed labor precautions. Patient has follow-up MFM for . Will do antepartum testing at 34 to 32 weeks. And return in 4 weeks OB check Continue Wellbutrin 75 mg da jamilah. APS labs today. Discussed labor precautions. Patient has follow-up MFM for . Will do antepartum testing at 34 to 32 weeks. And return in 4 weeks OB check. ABDIEL Calculator Estimated Delivery Date Method Current WG Current Estimate 09/23/25 Ultrasound #1 21w 3d Other Estimates 09/18/25 LMP (Certain) 22w 1d 09/18/25 Ultrasound #2 22w 1d 09/18/25 Manual 22w 1d final abdiel: 09/18, EFW: Notes Visit Date: 05/16/25 Last Updated by: Makayla Forrest CNM 1. Depression, wellbutrin 75mg daily, frequent loss: check lupous anticoag panel, Cardiolipin antibodies, ?2-glycoprotein antibodies, if abnormal,repeat in 12 weeks. kathie dose ASA weekly NST/BPP at 32-34 week Visit Date: 04/14/25 Last Updated by: Makayla Forrest CNM OB panel. NIPT/carrier screen-, B-/ABS-, rub ni, hbsag-,hiv-,HC-, GC/CT-, UA-, rpr;;nr. RHOGAM AT 28 week Visit Date: 03/14/25 Last Updated by: Makayla Forrest CNM 39 yo . LMP 12/12/24:: EDC: 09/18/25. office sono: 02/19: 9w1. EDC: 09/24/25 Office Procedures OBC Clinic LOC & Office Proc's Nursing/Assessment Patient Status: Established Patient OB Clinic Nursing Assessment: Medication Reconciliation, Update PMH in EMR and Vital Signs OB Clinic Coordination of Care: Complex Care and Chronic Disease 1-5, Education Complex Pt/Fam, Consent,records obtained, informed consent, Lab and Imaging orders, Results/Orders obtained and Staff clarify orders Special Needs: Heart tones Established Patient Charge Established Patient Point Assignment: 140 Established Patient Point Charge: EP Level 4 (120-155) Assessment & Plan Diagnosis / Problem List (1) Encounter for supervision of high risk in second trimester, antepartum: Status: Acute (2) Advanced maternal age (AMA) in : Status: Acute Plan APS labs today. Discussed labor precautions. Start NST BPP at 32 to 34 weeks. Follow-up with [facility] July 16. And start low-dose baby aspirin. Return in 4 weeks OB check. Continue disability for 8 weeks per consult Additional Plan Follow Up: 4 Weeks (obc)
== END 2025-05-16 11:56 | disposition home or self-care (01) ==
LOC: HODSOBC 09:44
PROVIDERS: Supervising Provider Advanced Practice Midwife; Visit Provider Advanced Practice Midwife
DX: O09.522 Supervision of elderly multigravida, second trimester (principal); O09.892 Supervision of other high risk pregnancies, second trimester; O99.342 Other mental disorders complicating pregnancy, second trimester; F32.A Depression, unspecified; O09.292 Supervision of pregnancy with other poor reproductive or obstetric history, second trimester; O26.22 Pregnancy care for patient with recurrent pregnancy loss, second trimester; Z3A.21 21 weeks gestation of pregnancy; Z79.899 Other long term (current) drug therapy
CPT/HCPCS: 99214; G0463